=== PATIENT | male | born 1975 | race Caucasian/White ===

== ENCOUNTER 2018-01-22 15:12 | Inpatient (IN) | payer SELFPAY ==
[~2018-01-22] VITALS: Ht 180.3 cm; Wt 90.7 kg
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
[2018-01-22 16:35] LABS: BASO % 0.4 %; BASO ABS # 0.04 K/uL (0-0.2); EOS % 1.9 %; EOS ABS # 0.21 K/uL (0-0.5); HEMATOCRIT 50.8 % (42-52); HEMOGLOBIN 17.2 g/dL (14.0-18.0); IG# 0.05 K/uL (0.00-0.02); LYMPH % 17.8 %; LYMPH ABS # 1.93 K/uL (1.2-3.4); MEAN CELL VOLUME 89.9 fL (80-100); MEAN CORPUSCULAR HEMOGLOBIN 30.4 pg (25-34); MEAN CORPUSCULAR HGB CONC 33.9 g/dl (32-36); MEAN PLATELET VOLUME 10.8 fL (7.4-10.4); MONO % 8.3 %; NEUT % 71.1 %; PLATELET COUNT 277 K/uL (130-400); RED CELL DISTRIBUTION WIDTH CV 14.4 % (11.5-14.5); RED CELL DISTRIBUTION WIDTH SD 47.8 fL (36.4-46.3); WHITE BLOOD COUNT 10.83 K/uL (4.8-10.8)
[2018-01-22] MEDS ORDERED: NICOTINE 21 MG/24 HR TDSY TD STA (16:42)
[2018-01-22 16:54] LABS: ALBUMIN 3.9 gm/dl (3.4-5.0); CALCIUM 8.9 mg/dl (8.5-10.1); CREATININE 1.28 mg/dl (0.60-1.40); POTASSIUM 4.3 mmol/L (3.5-5.1)
[2018-01-22 17:05] LABS: TOTAL PROTEIN 7.9 gm/dl (6.4-8.2)
--- NOTE | 2018-01-22 17:15 | DIAGNOSTIC IMAGING REPORT ---
SKULL <4 VIEWS CLINICAL HISTORY: evaluate for brain stimulator/implant COMPARISON STUDY: No previous studies for comparison. FINDINGS: Bilateral internal fixation hardware is noted within the facial bones. There are no radioopaque foreign bodies to suggest brain stimulator/implants. No calvarial fractures identified. No suspicious osseous lesion is identified. IMPRESSION: 1. No evidence for brainstem stimulator/implants. 2. Facial internal fixation hardware. Electronically signed by: Robb Cade M.D. 01/22/2018 5:13 PM Dictated Date/Time: 01/22/2018 5:11 PM
--- NOTE | 2018-01-23 07:39 | EMERGENCY ROOM VISIT NOTE ---
ED Visit Note First contact with patient: 02:35 42 yr old male arrived earlier in day for homicidal statements and delusions. Initially evaluated and medically cleared by Dr Alanis requiring 302 admission to psych facility. Patient slept throughout evening in no distress. Signed out to Dr Green awaiting placement.
[2018-01-23] MEDS ORDERED: ALUMINUM/MAGNESIUM SUSP 30 ML UDC PO PRN (13:30)
[2018-01-23] MEDS ORDERED: SODIUM CHLORIDE 0.65% NA SOLN 45 ML (OCEAN) PRN (13:30)
[2018-01-23] MEDS ORDERED: hydrOXYzine HCL 25 MG TAB PO PRN ×2 (13:30)
[2018-01-23] MEDS ORDERED: BISMUTH SUBSALICYLATE PER ML OMNICELL CHARGE PO PRN (13:30)
[2018-01-23] MEDS ORDERED: ACETAMINOPHEN 325 MG TAB PO PRN (13:30)
[2018-01-23] MEDS ORDERED: MAGNESIUM HYDROXIDE SUSP 30 ML UDC PO PRN (13:30)
[2018-01-23] MEDS ORDERED: HALOPERIDOL 5 MG TAB PO PRN ×2 (13:30→16:00)
[2018-01-23] MEDS ORDERED: HALOPERIDOL LACTATE 5 MG/ML 1 ML VIAL IM PRN ×2 (13:30→16:00)
--- NOTE | 2018-01-23 13:46 | EMERGENCY ROOM VISIT NOTE ---
ED Visit Note Patient signed out to me at change of shift. Patient is a 302.Patient has been accepted to [facility]. Problem List Medical Problems: (1) Schizophrenia Status: Chronic Current/Historical Medications No Active Prescriptions or Reported Meds Allergies Coded Allergies: No Known Allergies (Unverified , 01/22/18) Vital Signs Date Time Temp Pulse Resp B/P (MAP) Pulse Ox O2 Delivery O2 Flow Rate FiO2 01/23/18 08:46 103 20 168/115 98 Room Air 01/22/18 21:20 97 16 180/107 99 Room Air 01/22/18 15:15 36.5 87 18 178/119 98 Room Air Laboratory Results 01/22/18 16:01 Red Blood Count 5.65, Mean Corpuscular Volume 89.9, Mean Corpuscular Hemoglobin 30.4, Mean Corpuscular Hemoglobin Concent 33.9, Mean Platelet Volume 10.8, Neutrophils (%) (Auto) 71.1, Lymphocytes (%) (Auto) 17.8, Monocytes (%) (Auto) 8.3, Eosinophils (%) (Auto) 1.9, Basophils (%) (Auto) 0.4, Neutrophils # (Auto) 7.70, Lymphocytes # (Auto) 1.93, Monocytes # (Auto) 0.90, Eosinophils # (Auto) 0.21, Basophils # (Auto) 0.04 01/22/18 16:01 Test 01/22/18 16:01 01/22/18 16:20 White Blood Count 10.83 K/uL (4.8-10.8) Red Blood Count 5.65 M/uL (4.7-6.1) Hemoglobin 17.2 g/dL (14.0-18.0) Hematocrit 50.8 % (42-52) Mean Corpuscular Volume 89.9 fL (80-100) Mean Corpuscular Hemoglobin 30.4 pg (25-34) Mean Corpuscular Hemoglobin Concent 33.9 g/dl (32-36) Platelet Count 277 K/uL (130-400) Mean Platelet Volume 10.8 fL (7.4-10.4) Neutrophils (%) (Auto) 71.1 % Lymphocytes (%) (Auto) 17.8 % Monocytes (%) (Auto) 8.3 % Eosinophils (%) (Auto) 1.9 % Basophils (%) (Auto) 0.4 % Neutrophils # (Auto) 7.70 K/uL (1.4-6.5) Lymphocytes # (Auto) 1.93 K/uL (1.2-3.4) Monocytes # (Auto) 0.90 K/uL (0.11-0.59) Eosinophils # (Auto) 0.21 K/uL (0-0.5) Basophils # (Auto) 0.04 K/uL (0-0.2) RDW Standard Deviation 47.8 fL (36.4-46.3) RDW Coefficient of Variation 14.4 % (11.5-14.5) Immature Granulocyte % (Auto) 0.5 % Immature Granulocyte # (Auto) 0.05 K/uL (0.00-0.02) Anion Gap 7.0 mmol/L (3-11) Est Creatinine Clear Calc Drug Dose 87.5 ml/min Estimated GFR () 80.0 Estimated GFR (Non- 69.1 BUN/Creatinine Ratio 21.2 (10-20) Calcium Level 8.9 mg/dl (8.5-10.1) Total Bilirubin 0.5 mg/dl (0.2-1) Direct Bilirubin 0.1 mg/dl (0-0.2) Aspartate Amino Transf (AST/SGOT) 39 U/L (15-37) Alanine Aminotransferase (ALT/SGPT) 93 U/L (12-78) Alkaline Phosphatase 106 U/L (45-117) Total Protein 7.9 gm/dl (6.4-8.2) Albumin 3.9 gm/dl (3.4-5.0) Globulin 4.0 gm/dl (2.5-4.0) Albumin/Globulin Ratio 1.0 (0.9-2) Thyroid Stimulating Hormone (TSH) 1.320 uIu/ml (0.300-4.500) Ethyl Alcohol mg/dL < 3.0 mg/dl (0-3) Urine Color YELLOW Urine Appearance CLEAR (CLEAR) Urine pH 5.0 (4.5-7.5) Urine Specific [place] 1.028 (1.000-1.030) Urine Protein NEG (NEG) Urine Glucose (UA) NEG (NEG) Urine Ketones NEG (NEG) Urine Occult Blood NEG (NEG) Urine Nitrite NEG (NEG) Urine Bilirubin NEG (NEG) Urine Urobilinogen NEG (NEG) Urine Leukocyte Esterase TRACE (NEG) Urine WBC (Auto) 1-5 /hpf (0-5) Urine RBC (Auto) 0-4 /hpf (0-4) Urine Hyaline Casts (Auto) 5-10 /lpf (0-5) Urine Epithelial Cells (Auto) 10-20 /lpf (0-5) Urine Bacteria (Auto) NEG (NEG) Urine Pathogenic Casts 0-3 GRANULAR CASTS /lpf (0) Urine Opiates Screen NEG (NEG) Urine Methadone, Qualitative NEG (NEG) Urine Barbiturates NEG (NEG) Urine Phencyclidine (PCP) Level NEG (NEG) Ur Amphetamine/Methamphetamine POS (NEG) MDMA (Ecstasy) Screen POS (NEG) Urine Benzodiazepines Screen NEG (NEG) Urine Cocaine Metabolite POS (NEG) Urine Marijuana (THC) NEG (NEG) Medications Administered Medications (Trade) Dose Ordered Sig/Sri Route Start Time Stop Time Status Last Admin Dose Admin Nicotine (Nicoderm Cq 21MG Patch) 1 patch NOW STAT TD 01/22/18 16:42 01/22/18 16:44 DC 01/22/18 16:54 1 PATCH Departure Information Impression Primary Impression: Homicidal thoughts Additional Impressions: Auditory hallucination Delusions Prescriptions No Active Prescriptions or Reported Meds Referrals No Doctor, Assigned (PCP) Forms HOME CARE DOCUMENTATION FORM, IMPORTANT VISIT INFORMATION Patient Instructions [facility] Problem Qualifiers
[2018-01-23 14:16] VITALS: O2SAT 100
[2018-01-23 14:37] VITALS: BP 140/89; PULSE 88; TEMP 36.5; Ht 180.3 cm; Wt 90.7 kg
[2018-01-23] MEDS ORDERED: NICOTINE 21 MG/24 HR TDSY TD ONE (14:42)
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
[2018-01-23] MEDS: NICOTINE POLACRILEX 2 MG GUM MT PRN (16:40)
[2018-01-24 06:23] VITALS: BP_SYST 137; BP_SYST 171; BP_DIAS 113; BP_DIAS 86; PULSE 111; PULSE 99; TEMP 36.5
[2018-01-24] MEDS ORDERED: NICOTINE 21 MG/24 HR TDSY TD SCH (09:00)
[2018-01-24] MEDS: NICOTINE POLACRILEX 2 MG GUM MT PRN ×2 (09:13→13:01)
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
[2018-01-24 10:33] VITALS: BP 137/86; PULSE 111; TEMP 36.5; O2SAT 100
--- NOTE | 2018-01-24 10:54 | Psychiatric Progress Notes ---
Psychiatric Progress Note Date of Service Jan 24, 2018. Notes spoke with Ciro Gordon, PhD of the [facility] threat assessment team (police and [facility] team involved with duty to warn) to confirm notification of discharge directly to police custody. Reviewed fixed delusion and likely worsened by substance induced component, currently denying SI/HI/brito but still insisting he is part of the [facility] experiment with the implanted chip. Reviewed that Mr. Morris is psychiatrically stable for discharge to long-term as he is not acutely agitated in structured environment. He is refusing antipsychotic medication and doesn't meet medical criteria for forced meds over objection so the U team has provided the treatment we are able under [place] mental health commitment law. Given longstanding presence of the fixed delusion, less likely to respond to medication but obviously recognize that more shelter planning concerns for [facility] remain and should be addressed by the legal system. Dr. Gordon requested additional information, such as input from family and contact of girlfriend, and I reviewed limitations under HIPPA. He would of course benefit from a trial of antipsychotic medication and ongoing psychiatric monitoring during and after his release from long-term (ideally that would be court ordered) though unlikely to be enforceable across state lines.
== END 2018-01-24 13:15 | disposition home or self-care (01) | DRG 885 ==
LOC: C.EDB 15:14 → C.MHU 01-23 13:19
PROVIDERS: ADMIT Psychiatry & Neurology Psychiatry; ATTEND Psychiatry & Neurology Child & Adolescent Psychiatry
DX: F29 Unspecified psychosis not due to a substance or known physiological condition (principal); F17.200 Nicotine dependence, unspecified, uncomplicated